=== PATIENT | female | born 1990 | race Hispanic/Latino ===

== ENCOUNTER 2016-07-16 23:24 | Emergency (ER) | payer SELFPAY ==
[2016-07-16 23:25] VITALS: BMI 46.3
[2016-07-16 23:37] VITALS: RESP 18; TEMP 98.6; O2SAT 99
--- NOTE | 2016-07-17 00:09 | ED PDOC ---
HPI: Headache Time Seen by Provider: 07/16/16 23:39 Chief Complaint (Nursing): Headache Chief Complaint (Provider): headache History Per: Patient History/Exam Limitations: no limitations Onset/Duration Of Symptoms: Hrs Current Symptoms Are (Timing): Still Present Quality: Pressure, "Pain" Associated Symptoms: Nausea Additional History Per: Patient Additional Complaint(s): 26 y/o female presents with frontal headache x 10 hours. Patient notes symptoms to have started after eating "salty tuna fish" sandwich. She notes headache to have worsened after taking a nap, at which time she checked her BP at home and it was 180's/110's. Patient states she drank a lot of water and walked around a bit and repeat BP was 160's/100's so she came to ED. Associated nausea. Denies fever, dizziness, extremity numbness/weakness, vision changes, vomiting, chest pain, shortness of breath, palpitations, abdominal pain. Past Medical History Reviewed: Historical Data, Nursing Documentation, Vital Signs Vital Signs: Last Vital Signs Temp 98.6 F 07/16/16 23:33 Pulse 84 07/16/16 23:33 Resp 18 07/16/16 23:33 BP 134/86 07/16/16 23:33 Pulse Ox 99 07/16/16 23:33 - Medical History PMH: Anxiety, Asthma, Back Problems (herniated disk), Depression, Sleep Apnea Denies: HIV, Chronic Kidney Disease - Surgical History Surgical History: Tonsillectomy - Family History Family History: States: Unknown Family Hx - Immunization History Hx Tetanus Toxoid Vaccination: No - Home Medications Home Medications: Ambulatory Orders Medication Instructions Recorded Naproxen 500 mg PO BID PRN #14 tablet 11/23/15 Amoxicillin 875 mg PO BID #14 tab 06/05/16 Naproxen [Naprosyn] 500 mg PO Q12 PRN #20 tablet 07/17/16 - Allergies Allergies/Adverse Reactions: Allergies Allergy/AdvReac Type Severity Reaction Status Date / Time FISH Allergy Severe URTICARIA Verified 07/24/14 21:36 salmon Allergy URTICARIA Uncoded 11/23/15 00:45 Review of Systems ROS Statement: Except As Marked, All Systems Reviewed And Found Negative Neurological: Positive for: Headache Physical Exam - Reviewed Nursing Documentation Reviewed: Yes Vital Signs Reviewed: Yes - Physical Exam Appears: Positive for: Well, Non-toxic, No Acute Distress Head Exam: Positive for: ATRAUMATIC, NORMAL INSPECTION, NORMOCEPHALIC Skin: Positive for: Normal Color Eye Exam: Positive for: Normal appearance, EOMI, PERRL ENT: Positive for: Normal ENT Inspection Cardiovascular/Chest: Positive for: Regular Rate, Rhythm Respiratory: Positive for: Normal Breath Sounds Gastrointestinal/Abdominal: Positive for: Normal Exam Back: Positive for: Normal Inspection Extremity: Positive for: Normal ROM Neurologic/Psych: Positive for: Alert, Oriented - Laboratory Results Result Diagrams: 07/17/16 00:40 07/17/16 00:40 - ECG ECG: Positive for: Viewed By Me (reviewed by ED attending) ECG Rhythm: Positive for: Sinus Rhythm O2 Sat by Pulse Oximetry: 99 - Progress ED Course And Treament: labs, CT head, IV reglan, PO tylenol EXAM: CT Head Without Intravenous Contrast. CLINICAL HISTORY: 26 years old, female; Pain; Headache; Additional info: Headache, HTN TECHNIQUE: Axial computed tomography images of the head/brain without intravenous contrast. This CT exam was performed using one or more of the following dose reduction techniques: automated exposure control, adjustment of the mA and/or kV according to patient size, and/or use of iterative reconstruction technique. Coronal and sagittal reformatted images were created and reviewed. COMPARISON: No relevant prior studies available. FINDINGS: Brain: No intracranial hemorrhage. No mass. No definite edema. Ventricles: No hydrocephalus. Bones/joints: No acute fracture. Soft tissues: Unremarkable. Sinuses: Scattered minimal mucosal thickening of ethmoid sinuses. Tiny LEFT sphenoid retention cyst. Mastoid air cells: No mastoid effusion. Orbits: Unremarkable as visualized. IMPRESSION: 1. No acute intracranial abnormality. 2. Incidental/non-acute findings are described above On re-eval patient resting comfortably; states headache resolved. BP 132/66. Patient educated on findings, discharged with instructions to follow up PMD. Rx Naproxen given. Disposition - Clinical Impression Clinical Impression: Headache - Patient ED Disposition Is Patient to be Admitted: No Counseled Patient/Family Regarding: Studies Performed, Diagnosis, Need For Followup, Rx Given - Disposition Disposition: Routine/Home Disposition Time: 02:09 Condition: IMPROVED Prescriptions: Naproxen [Naprosyn] 500 mg PO Q12 PRN #20 tablet PRN Reason: Pain, Moderate (4-7) Instructions: Acute Headache (ED)
--- NOTE | 2016-07-17 00:39 | CT ---
EXAM: CT Head Without Intravenous Contrast. CLINICAL HISTORY: 26 years old, female; Pain; Headache; Additional info: Headache, HTN TECHNIQUE: Axial computed tomography images of the head/brain without intravenous contrast. This CT exam was performed using one or more of the following dose reduction techniques: automated exposure control, adjustment of the mA and/or kV according to patient size, and/or use of iterative reconstruction technique. Coronal and sagittal reformatted images were created and reviewed. COMPARISON: No relevant prior studies available. FINDINGS: Brain: No intracranial hemorrhage. No mass. No definite edema. Ventricles: No hydrocephalus. Bones/joints: No acute fracture. Soft tissues: Unremarkable. Sinuses: Scattered minimal mucosal thickening of ethmoid sinuses. Tiny LEFT sphenoid retention cyst. Mastoid air cells: No mastoid effusion. Orbits: Unremarkable as visualized. IMPRESSION: 1. No acute intracranial abnormality. 2. Incidental/non-acute findings are described above.
[2016-07-17 00:43] LABS: BASO # 0.1 K/uL (0.0-0.2); BASO % 0.9 % (0.0-2.0); EOS # 0.1 K/uL (0.0-0.7); EOS % 0.9 % (0.0-4.0); HEMATOCRIT 38.2 % (34.0-47.0); LYMPH # 2.7 K/uL (1.0-4.3); LYMPH % 28.3 % (20.0-40.0); MEAN CELL VOLUME 86.8 fl (81.0-99.0); MEAN CORPUSCULAR HEMOGLOBIN 28.7 pg (27.0-31.0); MEAN CORPUSCULAR HGB CONC 33.1 g/dL (33.0-37.0); MEAN PLATELET VOLUME 8.9 fl (7.2-11.7); MONO # 0.7 K/uL (0.0-0.8); MONO % 7.8 % (0.0-10.0); NEUT # 5.9 K/uL (1.8-7.0); NEUT % 62.1 % (50.0-75.0); RED CELL DISTRIBUTION WIDTH 12.9 % (11.5-14.5); WHITE BLOOD COUNT 9.5 K/uL (4.8-10.8)
[2016-07-17 00:50] VITALS: PULSE 75
[2016-07-17 00:52] LABS: ALB/GLOB RATIO 1.3 (1.0-2.1); ALKALINE PHOSPHATASE 93 U/L (38-126); ALT/SGPT 31 U/L (9-52); AST/SGOT 20 U/L (14-36); BILIRUBIN,TOTAL 0.4 mg/dl (0.2-1.3); BLOOD UREA NITROGEN 16 mg/dl (7-17); CALCIUM 8.9 mg/dL (8.4-10.2); CARBON DIOXIDE 26 mmol/L (22-30); CHLORIDE 102 mmol/L (98-107); GFR AFRICAN-AMERICAN > 60; GLUCOSE,RANDOM 92 mg/dL (65-105); POTASSIUM 4.4 MMOL/L (3.6-5.0); SODIUM 142 mmol/l (132-148); TOTAL PROTEIN 7.2 G/DL (6.3-8.2)
[2016-07-17 02:17] VITALS: BP 133/80
--- NOTE | 2016-07-17 07:07 | CARD ---
APPROVED REPORT EKG Measurement Heart [id number] <Conclusion> Normal sinus rhythm Normal ECG
== END 2016-07-17 02:14 | disposition home or self-care (01) ==
LOC: H.ER 23:24
DX: R51 Headache (principal); I10 Essential (primary) hypertension
CPT/HCPCS: 70450; 80053; 81025; 85025; 93005; 99285; J2765

== ENCOUNTER 2017-08-22 15:15 | Emergency (ER) | payer MEDICAID ==
[2017-08-22 15:15] VITALS: BMI 46.3
[2017-08-22 15:29] VITALS: BP 129/83; PULSE 88; RESP 20; TEMP 98.3; O2SAT 98
--- NOTE | 2017-08-22 15:41 | ED PDOC ---
HPI: Dental Pain/Injury Time Seen by Provider: 08/22/17 15:18 Chief Complaint (Nursing): Dental Pain Chief Complaint (Provider): Left lower dental pain, today History Per: Patient History/Exam Limitations: no limitations Onset/Duration Of Symptoms: Days (x1) Current Symptoms Are (Timing): Still Present Additional Complaint(s): 27 year old female presents to the emergency department for dull left lower dental pain and swelling accompanied with a subjective fever onset this morning. For the fever, she took Tylenol. The patient states that she had a route canal done in March, but the dentist left her tooth off. She did not go back due to insurance reasons. PMD: Vincent Serrano Past Medical History Reviewed: Historical Data, Nursing Documentation, Vital Signs Vital Signs: Last Vital Signs Temp 98.3 F 08/22/17 15:26 Pulse 88 08/22/17 15:26 Resp 20 08/22/17 15:26 BP 129/83 08/22/17 15:26 Pulse Ox 98 08/22/17 15:26 - Medical History PMH: Anxiety, Asthma, Back Problems (herniated disk), Depression, Sleep Apnea Denies: HIV, Chronic Kidney Disease - Surgical History Surgical History: Tonsillectomy - Family History Family History: States: Unknown Family Hx - Immunization History Hx Tetanus Toxoid Vaccination: No - Home Medications Home Medications: Ambulatory Orders Medication Instructions Recorded Naproxen 500 mg PO BID PRN #14 tablet 11/23/15 Amoxicillin 875 mg PO BID #14 tab 06/05/16 Naproxen [Naprosyn] 500 mg PO Q12 PRN #20 tablet 07/17/16 Amoxicillin/Clavulanate [Augmentin 1 tab PO BID #20 tab 08/22/17 875 MG-125 MG] Ibuprofen [Motrin Tab] 800 mg PO Q6H PRN #20 tab 08/22/17 - Allergies Allergies/Adverse Reactions: Allergies Allergy/AdvReac Type Severity Reaction Status Date / Time FISH Allergy Severe URTICARIA Verified 08/22/17 15:26 salmon Allergy URTICARIA Uncoded 11/23/15 00:45 Review of Systems ROS Statement: Except As Marked, All Systems Reviewed And Found Negative Constitutional: Positive for: Fever ENT: Positive for: Mouth Pain (left facial), Mouth Swelling (left facial) Physical Exam - Reviewed Nursing Documentation Reviewed: Yes Vital Signs Reviewed: Yes - Physical Exam Appears: Positive for: No Acute Distress Head Exam: Positive for: ATRAUMATIC, NORMAL INSPECTION, NORMOCEPHALIC Skin: Positive for: Normal Color, Warm, DRY Eye Exam: Positive for: Normal appearance ENT: Positive for: Other (lower left molar decay, without drainage or abscess) Neck: Positive for: Normal Respiratory: Positive for: Normal Breath Sounds. Negative for: Accessory Muscle Use, Respiratory Distress Neurologic/Psych: Positive for: Alert, Oriented - ECG O2 Sat by Pulse Oximetry: 98 (RA) Pulse Ox Interpretation: Normal Disposition - Clinical Impression Clinical Impression: Pain, dental, Dental caries - Patient ED Disposition Is Patient to be Admitted: No Counseled Patient/Family Regarding: Diagnosis, Need For Followup, Rx Given - Disposition Disposition: Routine/Home Disposition Time: 15:40 Condition: STABLE Prescriptions: Amoxicillin/Clavulanate [Augmentin 875 MG-125 MG] 1 tab PO BID #20 tab Ibuprofen [Motrin Tab] 800 mg PO Q6H PRN #20 tab PRN Reason: Pain Instructions: Tooth Decay, Adult Forms: [facility] (Bulgarian), [facility] ED School/Work Excuse
== END 2017-08-22 16:26 | disposition home or self-care (01) ==
LOC: H.ER 15:15
DX: K02.9 Dental caries, unspecified (principal); F32.9 Major depressive disorder, single episode, unspecified; F41.9 Anxiety disorder, unspecified; J45.909 Unspecified asthma, uncomplicated

== ENCOUNTER 2017-10-22 14:47 | Emergency (ER) | payer MEDICAID ==
[2017-10-22 14:47] VITALS: BMI 46.3
[2017-10-22 14:55] VITALS: BP 118/79; PULSE 80; RESP 20; TEMP 98.6; O2SAT 98
--- NOTE | 2017-10-22 15:31 | ED PDOC ---
HPI: Back Time Seen by Provider: 10/22/17 14:57 Chief Complaint (Nursing): Upper Extremity Problem/Injury Chief Complaint (Provider): Back Pain History Per: Patient Additional Complaint(s): 27 year old female with a history of chronic back pain presents to the ED for an evaluation of back pain that is worse in the past 2 weeks. Patient states she has a pinching-like sensation to left mid back that does not radiate. The pain has become worse today and she has not taken any medication for pain. She denies any burning sensation when urinating, fall or injury. Patient also has secondary complaint of pain to left wrist after lifting seat cover in her cat 2 days ago. She can bend her wrist but has pain when doing so. Patient is right hand dominant. PMD: Vincent Serrano Past Medical History Reviewed: Historical Data, Nursing Documentation, Vital Signs Vital Signs: Last Vital Signs Temp 98.6 F 10/22/17 14:52 Pulse 80 10/22/17 14:52 Resp 20 10/22/17 14:52 BP 118/79 10/22/17 14:52 Pulse Ox 98 10/22/17 14:52 - Medical History PMH: Anxiety, Asthma, Back Problems, Depression, Sleep Apnea - Surgical History Surgical History: Tonsillectomy Other surgeries: gastric sleeve - Family History Family History: States: No Known Family Hx - Living Arrangements Living Arrangements: With Family - Social History Current smoker - smoking cessation education provided: No Alcohol: None Drugs: Denies - Home Medications Home Medications: Ambulatory Orders Medication Instructions Recorded Naproxen 500 mg PO BID PRN #14 tablet 11/23/15 Amoxicillin 875 mg PO BID #14 tab 06/05/16 Naproxen [Naprosyn] 500 mg PO Q12 PRN #20 tablet 07/17/16 Amoxicillin/Clavulanate [Augmentin 1 tab PO BID #20 tab 08/22/17 875 MG-125 MG] Ibuprofen [Motrin Tab] 800 mg PO Q6H PRN #20 tab 08/22/17 Cyclobenzaprine [Cyclobenzaprine 10 mg PO TID PRN #20 tab 10/22/17 HCl] Diclofenac Epolamine [Flector] 1 patch TP BID PRN #60 patch 10/22/17 - Allergies Allergies/Adverse Reactions: Allergies Allergy/AdvReac Type Severity Reaction Status Date / Time FISH Allergy Severe URTICARIA Verified 10/22/17 14:50 salmon Allergy URTICARIA Uncoded 10/22/17 14:50 Review of Systems ROS Statement: Except As Marked, All Systems Reviewed And Found Negative Constitutional: Negative for: Fever, Chills Cardiovascular: Negative for: Chest Pain, Palpitations Respiratory: Negative for: Cough, Shortness of Breath Gastrointestinal: Positive for: Nausea. Negative for: Vomiting, Abdominal Pain , Diarrhea, Constipation Genitourinary Female: Negative for: Dysuria, Frequency, Incontinence, Hematuria Musculoskeletal: Positive for: Back Pain, Other (left wrist injury) Physical Exam - Reviewed Nursing Documentation Reviewed: Yes Vital Signs Reviewed: Yes - Physical Exam Appears: Positive for: Well, Non-toxic, No Acute Distress Head Exam: Positive for: ATRAUMATIC, NORMAL INSPECTION, NORMOCEPHALIC Skin: Positive for: Normal Color. Negative for: Rash Eye Exam: Positive for: Normal appearance Cardiovascular/Chest: Positive for: Regular Rate, Rhythm Respiratory: Positive for: Normal Breath Sounds. Negative for: Wheezing, Respiratory Distress Gastrointestinal/Abdominal: Positive for: Soft. Negative for: Tenderness, Distended, Guarding, Rebound Back: Positive for: L CVA Tenderness, Vertebral Tenderness (no midline tenderness to thoracic or lumbar spines. ) Extremity: Positive for: Other (Mild tenderness dorsal aspect of left wrist with full range of motion, no snuffbox tenderness, strong left hand coil binder with normal cap refill) Neurologic/Psych: Positive for: Alert, Oriented (x3) - Laboratory Results Urine POC: Negative Urine dip results: Negative for: Leukocyte Esterase, Blood, Nitrate, Ketones, Glucose, Bilirubin, Protein - ECG O2 Sat by Pulse Oximetry: 98 (RA) Pulse Ox Interpretation: Normal - Other Rad LS Spine x-ray X-Ray: Viewed By Me, Read By Radiologist X-Ray Interpretation: see below Left wrist x-ray X-Ray: Interpreted by Me, Viewed By Me X-Ray Interpretation: no fx, no dis Medical Decision Making Medical Decision Making: Time: 1501 Initial Impression: 27 year old female with left-sided back pain Initial Plan: --Urine --Urine Dip --LS Spine AP/LAT [RAD] --Wrist, Left 3 Views [RAD] --Patient given Toradol 30mg LS Spine x-ray - Mild central compression deformity versus Schmorl's node in the superior T12 vertebral endplate, indeterminate age. Otherwise unremarkable. Patient aware of x-ray results. All questions answered. Patient reports improvement pain after Toradol given. Patient was advised to follow-up with primary doctor for further evaluation of ongoing back pain. Prescriptions for Flexeril and Flector patch given. Scribe Attestation: Documented by Jovanny Hawley, acting as a scribe for Valeria Leach PA-C Provider Scribe Attestation: All medical record entries made by the Scribe were at my direction and personally dictated by me. I have reviewed the chart and agree that the record accurately reflects my personal performance of the history, physical exam, medical decision making, and the department course for this patient. I have also personally directed, reviewed, and agree with the discharge instructions and disposition. Disposition - Clinical Impression Clinical Impression: Back pain, Left wrist sprain - Patient ED Disposition Is Patient to be Admitted: No Counseled Patient/Family Regarding: Studies Performed, Diagnosis, Need For Followup, Rx Given - Disposition Referrals: Vincent Serrano MD [Family Provider] - Disposition: Routine/Home Disposition Time: 16:18 Condition: STABLE Additional Instructions: Take rx meds as directed along with tylenol for pain. Avoid any heavy lifting. Follow up with primary care doctor. Prescriptions: Cyclobenzaprine [Cyclobenzaprine HCl] 10 mg PO TID PRN #20 tab PRN Reason: Muscle Spasm Diclofenac Epolamine [Flector] 1 patch TP BID PRN #60 patch PRN Reason: Pain, Moderate (4-7) Instructions: Low Back Pain in Adults, Spinal Stenosis, Wrist Sprain (DC) Forms: [facility] ([place]inyarwanda)
--- NOTE | 2017-10-22 15:59 | RAD ---
PROCEDURE: Left Wrist Radiographs. HISTORY: trauma COMPARISON: None. FINDINGS: BONES: No acute fracture. Mild deformity of the base of the 5th proximal phalanx may be posttraumatic. JOINTS: Normal. No dislocation. SOFT TISSUES: Normal. OTHER FINDINGS: None. IMPRESSION: No acute fracture.
--- NOTE | 2017-10-22 16:01 | RAD ---
PROCEDURE: Radiographs of the Lumbar Spine. HISTORY: pain COMPARISON: No prior. FINDINGS: BONES: Mild central compression deformity versus Schmorl's node in the superior T12 vertebral endplate. Remaining vertebral bodies are maintained in height. DISC SPACES: Unremarkable. OTHER FINDINGS: None. IMPRESSION: Mild central compression deformity versus Schmorl's node in the superior T12 vertebral endplate, indeterminate age. Otherwise unremarkable.
== END 2017-10-22 16:22 | disposition home or self-care (01) ==
LOC: H.ER 14:47
DX: M54.9 Dorsalgia, unspecified (principal); S63.502A Unspecified sprain of left wrist, initial encounter; Y92.89 Other specified places as the place of occurrence of the external cause
CPT/HCPCS: 29125; 72100; 73110; 81025; 96372; 99284; J1885

== ENCOUNTER 2018-04-05 17:29 | Emergency (ER) | payer MEDICAID ==
[2018-04-05 17:29] VITALS: BMI 46.3
[2018-04-05 19:23] VITALS: BP 136/83; PULSE 93; RESP 16; TEMP 98.5; O2SAT 100
--- NOTE | 2018-04-05 21:04 | ED PDOC ---
Upper Extremity Pain/Injury Time Seen by Provider: 04/05/18 19:40 Chief Complaint (Nursing): Finger,Hand,&Wrist Chief Complaint (Provider): Right hand pain, closed in door last night History Per: Patient History/Exam Limitations: no limitations Onset/Duration Of Symptoms: Hrs (20) Additional Complaint(s): 28 yo female with history of asthma presents for evaluation of right hand pain and bruising after slamming her hand in a car door last night at 11pm. Pt states she had worked a double and was to tired to come in last night. Pt took percocet and NSAID for pain. Past Medical History Reviewed: Historical Data, Nursing Documentation, Vital Signs Vital Signs: Last Vital Signs Temp 98.5 F 04/05/18 19:22 Pulse 93 H 04/05/18 19:22 Resp 16 04/05/18 19:22 BP 136/83 04/05/18 19:22 Pulse Ox 100 04/05/18 19:22 - Medical History PMH: Anxiety, Asthma, Back Problems, Depression, Sleep Apnea Denies: HIV, Chronic Kidney Disease - Surgical History Surgical History: Tonsillectomy - Family History Family History: States: Unknown Family Hx - Living Arrangements Living Arrangements: With Family - Social History Current smoker - smoking cessation education provided: No Alcohol: None Drugs: Denies - Immunization History Hx Tetanus Toxoid Vaccination: No - Home Medications Home Medications: Ambulatory Orders Medication Instructions Recorded Naproxen 500 mg PO BID PRN #14 tablet 11/23/15 Amoxicillin 875 mg PO BID #14 tab 06/05/16 Naproxen [Naprosyn] 500 mg PO Q12 PRN #20 tablet 07/17/16 Amoxicillin/Clavulanate [Augmentin 1 tab PO BID #20 tab 08/22/17 875 MG-125 MG] Ibuprofen [Motrin Tab] 800 mg PO Q6H PRN #20 tab 08/22/17 Cyclobenzaprine [Cyclobenzaprine 10 mg PO TID PRN #20 tab 10/22/17 HCl] Diclofenac Epolamine [Flector] 1 patch TP BID PRN #60 patch 10/22/17 Naproxen [Naprosyn] 500 mg PO BID PRN #20 tablet 04/05/18 - Allergies Allergies/Adverse Reactions: Allergies Allergy/AdvReac Type Severity Reaction Status Date / Time FISH Allergy Severe URTICARIA Verified 04/05/18 19:19 salmon Allergy URTICARIA Uncoded 04/05/18 19:19 Review of Systems ROS Statement: Except As Marked, All Systems Reviewed And Found Negative Constitutional: Negative for: Fever, Chills Musculoskeletal: Positive for: Hand Pain Neurological: Negative for: Weakness, Numbness Physical Exam - Reviewed Nursing Documentation Reviewed: Yes Vital Signs Reviewed: Yes - Physical Exam Appears: Positive for: Well, Non-toxic, No Acute Distress Head Exam: Positive for: ATRAUMATIC, NORMAL INSPECTION, NORMOCEPHALIC Skin: Positive for: Normal Color, Warm, DRY Eye Exam: Positive for: Normal appearance ENT: Positive for: Normal ENT Inspection Neck: Positive for: Normal, Painless ROM Cardiovascular/Chest: Negative for: Bradycardia, Tachycardia Respiratory: Negative for: Accessory Muscle Use, Respiratory Distress Back: Positive for: Normal Inspection Extremity: Positive for: Normal ROM, Tenderness (2-3 fingers and metacarpals, wutg ecchymosis ) Neurologic/Psych: Positive for: Alert, Oriented, Gait - ECG O2 Sat by Pulse Oximetry: 100 Medical Decision Making Medical Decision Making: XR without acute fracture or dislocation. Ice, elevation. Disposition - Clinical Impression Clinical Impression: Hand contusion - Patient ED Disposition Is Patient to be Admitted: No Counseled Patient/Family Regarding: Diagnosis, Need For Followup, Rx Given - Disposition Referrals: Varun Auguste MD [Medical Doctor] - Disposition: Routine/Home Disposition Time: 21:06 Condition: GOOD Prescriptions: Naproxen [Naprosyn] 500 mg PO BID PRN #20 tablet PRN Reason: Pain Instructions: Contusion (DC)
--- NOTE | 2018-04-06 10:39 | RAD ---
Date of service: 04/05/2018 PROCEDURE: Radiographs of the right hand HISTORY: Right hand pain, crushed COMPARISON: None. FINDINGS: BONES: Bone alignment and mineralization are normal. There is no acute displaced fracture or bone destruction. JOINTS: The joint spaces are preserved. SOFT TISSUES: Normal. OTHER FINDINGS: None. IMPRESSION: No acute displaced fracture or dislocation.
== END 2018-04-05 21:18 | disposition home or self-care (01) ==
LOC: H.ER 17:29
DX: S60.221A Contusion of right hand, initial encounter (principal); J45.909 Unspecified asthma, uncomplicated

== ENCOUNTER 2018-05-27 20:06 | Emergency (ER) | payer MEDICAID ==
[2018-05-27 20:06] VITALS: BMI 46.3
[2018-05-27 21:46] VITALS: BP 154/91; PULSE 81; RESP 16; TEMP 98.3; O2SAT 99
[2018-05-27] MEDS ORDERED: Sodium Chloride 0.9% 1,000 ML IV STA (22:36)
--- NOTE | 2018-05-27 23:38 | ED PDOC ---
HPI: General Adult Time Seen by Provider: 05/27/18 22:36 Chief Complaint (Nursing): GI Problem Chief Complaint (Provider): GI Problem History Per: Patient History/Exam Limitations: no limitations Onset/Duration Of Symptoms: Days (today) Current Symptoms Are (Timing): Still Present Additional Complaint(s): 28 year old female with a history of gastric bypass surgery presents to the ED with body aches and stabbing abdominal pain associated x3 episodes of vomiting and x2 episodes of self-defecation onset today. Patient had a gastric bypass x1 year ago done by Dr. Holley in [place], during which she flat lined. Otherwise, patient had no complications and did not follow up. She has been on a ketogenic diet for x4 months. No further complaints. PMD: Zach LMNP: 05/19/18 Past Medical History Reviewed: Historical Data, Nursing Documentation, Vital Signs Vital Signs: Last Vital Signs Temp 98.3 F 05/27/18 21:44 Pulse 81 05/27/18 21:44 Resp 16 05/27/18 21:44 BP 154/91 H 05/27/18 21:44 Pulse Ox 99 05/27/18 21:44 - Medical History PMH: Anxiety, Asthma, Back Problems, Depression, Sleep Apnea Denies: HIV, Chronic Kidney Disease - Surgical History Surgical History: Tonsillectomy Other surgeries: gastric bypass - Family History Family History: States: Unknown Family Hx - Immunization History Hx Tetanus Toxoid Vaccination: No - Home Medications Home Medications: Ambulatory Orders Medication Instructions Recorded RX: Naproxen 500 mg PO BID PRN #14 tablet 11/23/15 RX: Amoxicillin 875 mg PO BID #14 tab 06/05/16 RX: Naproxen [Naprosyn] 500 mg PO Q12 PRN #20 tablet 07/17/16 Amoxicillin/Clavulanate [Augmentin 1 tab PO BID #20 tab 08/22/17 875 MG-125 MG] Ibuprofen [Motrin Tab] 800 mg PO Q6H PRN #20 tab 08/22/17 Cyclobenzaprine [Cyclobenzaprine 10 mg PO TID PRN #20 tab 10/22/17 HCl] Diclofenac Epolamine [Flector] 1 patch TP BID PRN #60 patch 10/22/17 RX: Naproxen [Naprosyn] 500 mg PO BID PRN #20 tablet 04/05/18 - Allergies Allergies/Adverse Reactions: Allergies Allergy/AdvReac Type Severity Reaction Status Date / Time FISH Allergy Severe URTICARIA Verified 04/05/18 19:19 salmon Allergy URTICARIA Uncoded 04/05/18 19:19 Review of Systems ROS Statement: Except As Marked, All Systems Reviewed And Found Negative Constitutional: Negative for: Fever Gastrointestinal: Positive for: Vomiting (x2), Abdominal Pain Musculoskeletal: Positive for: Other (body aches) Physical Exam - Reviewed Nursing Documentation Reviewed: Yes - Physical Exam Appears: Positive for: Uncomfortable Head Exam: Positive for: ATRAUMATIC, NORMOCEPHALIC Skin: Positive for: Normal Color, Warm, Dry Eye Exam: Positive for: Normal appearance, EOMI, PERRL ENT: Positive for: Normal ENT Inspection Cardiovascular/Chest: Positive for: Regular Rate, Rhythm. Negative for: Murmur Respiratory: Positive for: Normal Breath Sounds. Negative for: Respiratory Distress Gastrointestinal/Abdominal: Positive for: Tenderness (epigastric tenderness), Other (obese) Extremity: Positive for: Normal ROM (upper and lower). Negative for: Pedal Edema, Deformity Neurologic/Psych: Positive for: Alert, Oriented (x3) - Laboratory Results Result Diagrams: 05/27/18 23:50 05/27/18 23:50 - ECG O2 Sat by Pulse Oximetry: 99 (RA) Pulse Ox Interpretation: Normal Medical Decision Making Medical Decision Making: Time: 2235 Workup for viral illness vs gastroenteritis. Low suspicion for obstruction at this point to other complication or gastric disease. Plan: --labs --Zofran --Influenza --UA Time: 212 --Patient reports worsening abdominal pain, will give morphine, pepcid and CT abdomen. Time: 446 CT abdomen and pelvis IMPRESSION: Left ovarian cyst. No evidence of acute abdominal or pelvic pathology. Time: 504 --CT demonstrates left ovarian cyst, no signs of obstructions or other intraabdominal pathology. Labs within normal limits. Patient with improved symptoms will follow up with PMD in 3-5 days. Scribe Attestation: Documented by Gill Garzon, acting as a scribe for Shanita Mcginnis MD. Provider Scribe Attestation: All medical record entries made by the Scribe were at my direction and personally dictated by me. I have reviewed the chart and agree that the record accurately reflects my personal performance of the history, physical exam, medical decision making, and the department course for this patient. I have also personally directed, reviewed, and agree with the discharge instructions and disposition. Disposition - Clinical Impression Clinical Impression: Gastroenteritis - Disposition Referrals: Fransisco Spencer MD, PhD [Staff Provider] - Disposition: Routine/Home Disposition Time: 05:05 Condition: STABLE Additional Instructions: Increase drinking water while symptoms last to prevent dehydration. 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 Return to the emergency department if symptoms worsen or if new symptoms develop. Instructions: Gastritis (DC), Colitis (DC) Forms: [employer] (Slovak), [facility] ED School/Work Excuse Print Language: ROMANIAN
[2018-05-28 00:02] LABS: BASO % 0.7 % (0.0-2.0); EOS # 0.1 K/uL (0.0-0.7); EOS % 0.8 % (0.0-4.0); HEMOGLOBIN 11.9 g/dL (12.0-16.0); LYMPH # 2.2 K/uL (1.0-4.3); MEAN CELL VOLUME 83.4 fl (81.0-99.0); MEAN CORPUSCULAR HEMOGLOBIN 26.6 pg (27.0-31.0); MEAN CORPUSCULAR HGB CONC 31.9 g/dL (33.0-37.0); MEAN PLATELET VOLUME 8.7 fl (7.2-11.7); MONO # 0.6 K/uL (0.0-0.8); MONO % 9.1 % (0.0-10.0); NEUT # 3.7 K/uL (1.8-7.0); NEUT % 56.4 % (50.0-75.0); RBC 4.48 Mil/uL (3.80-5.20); RED CELL DISTRIBUTION WIDTH 14.5 % (11.5-14.5); WHITE BLOOD COUNT 6.6 K/uL (4.8-10.8)
[2018-05-28 00:11] LABS: ALB/GLOB RATIO 1.3 (1.0-2.1); ALBUMIN 4.3 g/dL (3.5-5.0); ALT/SGPT 48 U/L (9-52); AST/SGOT 28 U/L (14-36); BLOOD UREA NITROGEN 18 mg/dl (7-17); CALCIUM 9.3 mg/dL (8.4-10.2); GFR NON-AFRICAN AMERICAN > 60
[2018-05-28 00:15] LABS: SQUAMOUS EPITHIAL 17 /hpf (0-5); URINE BACTERIA RARE (<OCC); URINE BILIRUBIN NEGATIVE (NEGATIVE); URINE BLOOD MODERATE (NEGATIVE); URINE CLARITY CLOUDY (Clear); URINE COLOR YELLOW (YELLOW); URINE GLUCOSE (UA) NEG (NEGATIVE); URINE LEUKOCYTE ESTERASE NEG Leu/uL (Negative); URINE PROTEIN NEGATIVE (NEGATIVE); URINE UROBILINOGEN 0.2-1.0 mg/dL (0.2-1.0)
[2018-05-28] MEDS ORDERED: Morphine 4 MG/ML VIAL IVP STA (02:12)
[2018-05-28] MEDS ORDERED: Iohexol 240 (50 ml) PO ONE (02:13)
[2018-05-28] MEDS ORDERED: Iohexol 240 (50 ml) ONE (02:18)
[2018-05-28] MEDS ORDERED: Iohexol 300 100 ML IJ ONE (04:00)
[2018-05-28] MEDS ORDERED: Sodium Chloride 0.9% 50 ML IV ONE (04:00)
--- NOTE | 2018-05-28 14:14 | CT ---
Date of service: 05/28/2018 PROCEDURE: CT Abdomen and Pelvis with contrast HISTORY: vomiting, diarrhea, abd pain COMPARISON: None. TECHNIQUE: Following oral and intravenous contrast administration, a CT examination of the abdomen and pelvis was performed from the domes of the diaphragms to the symphysis pubis with reformatted datasets provided not only axial but also sagittal and coronal series.Contrast dose: Omnipaque 300, 100 cc Radiation dose: Total exam DLP = 854.01 mGy-cm. This CT exam was performed using one or more of the following dose reduction techniques: Automated exposure control, adjustment of the mA and/or kV according to patient size, and/or use of iterative reconstruction technique. FINDINGS: LOWER THORAX: Unremarkable. LIVER: Unremarkable. No gross lesion or ductal dilatation. GALLBLADDER AND BILE DUCTS: Unremarkable. PANCREAS: Unremarkable. No gross lesion or ductal dilatation. SPLEEN: Unremarkable. ADRENALS: Unremarkable. No mass. KIDNEYS AND URETERS: Unremarkable. No hydronephrosis. No solid mass. VASCULATURE: Unremarkable. No aortic aneurysm. No aortic atherosclerotic calcification or mural plaque present. BOWEL: Unremarkable. No obstruction. No gross mural thickening. APPENDIX: Normal appendix. PERITONEUM: Unremarkable. No free fluid. No free air. LYMPH NODES: Unremarkable. No enlarged lymph nodes. BLADDER: Unremarkable. REPRODUCTIVE: 2.4 cm cyst left ovary, 8 Hounsfield units. BONES: Mild compression fracture T12, age indeterminate. OTHER FINDINGS: None. IMPRESSION: No definite acute abdominal. 2.4 cm cyst seen the left ovary, 8 Hounsfield units density. Further characterization by transvaginal pelvic ultrasound can be performed if clinically warranted. Mild incidental T12 mild compression fracture, indeterminate age. Preliminary report provided by [employer], 05/28/2018 4:47 a.m..
== END 2018-05-28 05:15 | disposition home or self-care (01) ==
LOC: H.ER 20:06
DX: K52.9 Noninfective gastroenteritis and colitis, unspecified (principal); J45.909 Unspecified asthma, uncomplicated; Z86.59 Personal history of other mental and behavioral disorders; Z98.84 Bariatric surgery status
CPT/HCPCS: 74177; 80053; 81003; 81025; 85025; 87804; 96374; 96375; 96376; 99284; J2270; J2405; J7030; Q9966; Q9967

== ENCOUNTER 2018-06-09 12:58 | Emergency (ER) | payer MEDICAID ==
[2018-06-09 12:58] VITALS: BMI 46.3
[2018-06-09 13:04] VITALS: BP 128/81; PULSE 65; RESP 20; TEMP 98.4; O2SAT 100
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
== END 2018-06-09 13:39 | disposition home or self-care (01) ==
LOC: H.ER 12:58
DX: M54.30 Sciatica, unspecified side (principal); Z86.59 Personal history of other mental and behavioral disorders; J45.909 Unspecified asthma, uncomplicated

== ENCOUNTER 2018-07-03 16:19 | Emergency (ER) | payer MEDICAID ==
[2018-07-03 16:20] VITALS: BMI 46.3
[2018-07-03 16:27] VITALS: RESP 18; O2SAT 99
[2018-07-03] MEDS ORDERED: Sodium Chloride 0.9% 1,000 ML IV STA (16:49)
--- NOTE | 2018-07-03 17:00 | ED PDOC ---
HPI: Abdomen Time Seen by Provider: 07/03/18 16:29 Chief Complaint (Nursing): Abdominal Pain Chief Complaint (Provider): Abdominal Pain History Per: Patient History/Exam Limitations: no limitations Onset/Duration Of Symptoms: Days (x2) Current Symptoms Are (Timing): Constant Quality Of Discomfort: "Pain" Associated Symptoms: Fever, Nausea, Vomiting, Urinary Symptoms (dysuria). denies: Chills, Diarrhea, Constipation Additional Complaint(s): 28 year old female with no significant past medical history presents to the ED with constant abdominal pain onset x2 days associated nausea, vomiting, and fever. Patient reports Tmax of 100 and dysuria, but denies any diarrhea, constipation or hematuria. She took Pepto-Bismol at home for symptoms. PMD: Zach Past Medical History Reviewed: Historical Data, Nursing Documentation, Vital Signs Vital Signs: Last Vital Signs Temp 97.5 F L 07/03/18 16:25 Pulse 108 H 07/03/18 16:25 Resp 18 07/03/18 16:25 BP 119/87 07/03/18 16:25 Pulse Ox 99 07/03/18 16:25 - Medical History PMH: Anxiety, Asthma, Back Problems, Depression, Sleep Apnea Denies: HIV, Chronic Kidney Disease - Surgical History Surgical History: Tonsillectomy Other surgeries: gastric sleeve - Family History Family History: States: Unknown Family Hx - Social History Current smoker - smoking cessation education provided: No Ex-Smoker (has not smoked in the last 12 months): No Alcohol: None Drugs: Denies - Immunization History Hx Tetanus Toxoid Vaccination: No - Home Medications Home Medications: Ambulatory Orders Medication Instructions Recorded Naproxen 500 mg PO BID PRN #14 tablet 11/23/15 Amoxicillin 875 mg PO BID #14 tab 06/05/16 Naproxen [Naprosyn] 500 mg PO Q12 PRN #20 tablet 07/17/16 Amoxicillin/Clavulanate [Augmentin 1 tab PO BID #20 tab 08/22/17 875 MG-125 MG] Ibuprofen [Motrin Tab] 800 mg PO Q6H PRN #20 tab 08/22/17 Cyclobenzaprine [Cyclobenzaprine 10 mg PO TID PRN #20 tab 10/22/17 HCl] Diclofenac Epolamine [Flector] 1 patch TP BID PRN #60 patch 10/22/17 Naproxen [Naprosyn] 500 mg PO BID PRN #20 tablet 04/05/18 Methylprednisolone [Medrol Dose 4 mg PO DAILY #21 mg 06/09/18 Pack (21 tabs)] Famotidine [Pepcid] 20 mg PO BID #20 tab 07/03/18 Ondansetron ODT [Zofran ODT] 4 mg PO Q8H PRN #20 odt 07/03/18 - Allergies Allergies/Adverse Reactions: Allergies Allergy/AdvReac Type Severity Reaction Status Date / Time FISH Allergy Severe URTICARIA Verified 07/03/18 16:25 salmon Allergy URTICARIA Uncoded 07/03/18 16:25 Review of Systems ROS Statement: Except As Marked, All Systems Reviewed And Found Negative Constitutional: Positive for: Fever Gastrointestinal: Positive for: Nausea, Vomiting, Abdominal Pain. Negative for: Diarrhea, Constipation Genitourinary Female: Positive for: Dysuria. Negative for: Hematuria Physical Exam - Reviewed Nursing Documentation Reviewed: Yes Vital Signs Reviewed: Yes - Physical Exam Appears: Positive for: Non-toxic, No Acute Distress Head Exam: Positive for: ATRAUMATIC, NORMOCEPHALIC Skin: Positive for: Normal Color, Warm, Dry Eye Exam: Positive for: Normal appearance, EOMI, PERRL Cardiovascular/Chest: Positive for: Regular Rate, Rhythm. Negative for: Murmur Respiratory: Positive for: Normal Breath Sounds. Negative for: Respiratory Distress Gastrointestinal/Abdominal: Positive for: Soft, Tenderness (moderate epigastric tenderness). Negative for: Guarding, Rebound Extremity: Positive for: Normal ROM (upper and lower). Negative for: Pedal Edema, Deformity Neurological/Psych: Positive for: Awake, Alert, Oriented - Laboratory Results Result Diagrams: 07/03/18 17:37 07/03/18 17:37 - ECG O2 Sat by Pulse Oximetry: 99 (RA) Pulse Ox Interpretation: Normal Medical Decision Making Medical Decision Making: Time: 1648 Plan: --CMP --Lipase --U preg --U dip --CBC --PTT --PT/INR --NS --Zofran 4 mg IV --UA --US abdomen Name: FABRICIO AMARO Exam Date: Jul 03, 2018 5:56:41 PM EDT Modality Type: SD\\US\\OT\\AK Description: US - AB LIMITED (SINGLE ORGAN, QUAD RANT) Gender: F Laterality: Not applicable : 89 Referring Physician: Lacy So EXAM: US Abdomen, Right Upper Quadrant. CLINICAL HISTORY: Epigastric pain, vomiting; fever with abd pain TECHNIQUE: Right upper quadrant sonography performed with image documentation. COMPARISON: None provided. FINDINGS: LIVER: Within normal limits in size and echogenicity. No mass. GALLBLADDER: The gallbladder appears within normal limits. No gallbladder wall thickening or pericholecystic fluid. COMMON BILE DUCT: No dilation. PANCREAS: The visualized pancreas appears within normal limits. The distal pancreas is obscured by bowel gas. RIGHT KIDNEY: Unremarkable. Normal renal contours. No renal mass or calculus. No hydronephrosis. IMPRESSION: Unremarkable right upper quadrant ultrasound. Electronically signed on Jul 03, 2018 6:38:44 PM EDT by: Johny Dailey M.D., Certified by [facility], Diagnostic Radiology 19:00 Pt ambulated to restroom without difficulty. Old records reviewed, patient had CT abd/pelvis last month for similar pain, negative for acute changes. --------- -------- Scribe Attestation: Documented by Gill Garzon, acting as a scribe for Lacy So MD. Provider Scribe Attestation: All medical record entries made by the Scribe were at my direction and personally dictated by me. I have reviewed the chart and agree that the record accurately reflects my personal performance of the history, physical exam, medical decision making, and the department course for this patient. I have also personally directed, reviewed, and agree with the discharge instructions and disposition. Disposition - Clinical Impression Clinical Impression: Abdominal pain in female - Patient ED Disposition Is Patient to be Admitted: No - Disposition Referrals: Vincent Serrano MD [Family Provider] - Disposition: Routine/Home Disposition Time: 19:02 Condition: IMPROVED Prescriptions: Famotidine [Pepcid] 20 mg PO BID #20 tab Ondansetron ODT [Zofran ODT] 4 mg PO Q8H PRN #20 odt PRN Reason: Nausea/Vomiting Instructions: Acute Abdomen (Belly Pain) Forms: [employer] ([place]), [facility] ED School/Work Excuse
[2018-07-03 17:45] LABS: BASO % 0.1 % (0.0-2.0); EOS % 0.2 % (0.0-4.0); HEMOGLOBIN 12.9 g/dL (12.0-16.0); INR 1.2; LYMPH # 0.4 K/uL (1.0-4.3); LYMPH % 7.1 % (20.0-40.0); MEAN CELL VOLUME 83.6 fl (81.0-99.0); MEAN CORPUSCULAR HEMOGLOBIN 26.9 pg (27.0-31.0); MEAN CORPUSCULAR HGB CONC 32.2 g/dL (33.0-37.0); MEAN PLATELET VOLUME 8.9 fl (7.2-11.7); MONO # 0.3 K/uL (0.0-0.8); MONO % 5.9 % (0.0-10.0); NEUT # 4.7 K/uL (1.8-7.0); NEUT % 86.7 % (50.0-75.0); PLATELET COUNT 208 K/uL (130-400); PROTHROMBIN TIME 13.5 Seconds (9.8-13.1); RBC 4.77 Mil/uL (3.80-5.20); RED CELL DISTRIBUTION WIDTH 14.7 % (11.5-14.5); WHITE BLOOD COUNT 5.4 K/uL (4.8-10.8)
[2018-07-03 17:47] LABS: SQUAMOUS EPITHIAL 1 /hpf (0-5); URINE BILIRUBIN NEGATIVE (NEGATIVE); URINE BLOOD NEGATIVE (NEGATIVE); URINE CLARITY SLIGHTY-CLOUDY (Clear); URINE COLOR YELLOW (YELLOW); URINE GLUCOSE (UA) NEG (NEGATIVE); URINE LEUKOCYTE ESTERASE NEG Leu/uL (Negative); URINE PROTEIN NEGATIVE (NEGATIVE)
[2018-07-03 17:48] LABS: PARTIAL THROMBOPLASTIN TIME 32.2 Seconds (25.6-37.1)
[2018-07-03 17:50] LABS: ALB/GLOB RATIO 1.3 (1.0-2.1); ALT/SGPT 31 U/L (9-52); AST/SGOT 17 U/L (14-36); BLOOD UREA NITROGEN 13 mg/dl (7-17); CALCIUM 8.8 mg/dL (8.4-10.2); GFR NON-AFRICAN AMERICAN > 60; LIPASE 24 U/L (23-300)
[2018-07-03 18:16] LABS: BANDS 2 % (0-2); LYMPHOCYTE 9 % (20-50); MONOCYTE 6 % (0-10); NEUTROPHIL 83 % (42-75); PLATELET ESTIMATE NORMAL (NORMAL); TOTAL CELLS COUNTED 100
[2018-07-03 18:17] LABS: ANISOCYTOSIS SLIGHT; HYPOCHROMIC SLIGHT; MICROCYTOSIS SLIGHT
[2018-07-03 20:01] VITALS: BP 124/60; PULSE 94; TEMP 99
--- NOTE | 2018-07-04 08:24 | US ---
Date of service: 07/03/2018 HISTORY: Epigastric pain COMPARISON: CT scan 05/28/2018 TECHNIQUE: Real-time transabdominal ultrasound evaluation of the right upper quadrant of the abdomen was performed. FINDINGS: LIVER: Measures 15.4 cm in length. Normal echogenicity of the liver parenchyma. No mass. No intrahepatic bile duct dilatation. GALLBLADDER: Gallbladder is mildly contracted. No definite gallbladder wall thickening, pericholecystic fluid, or gallstones are seen. No sonographic Cabrera's sign was elicited. COMMON BILE DUCT: Measures 3 mm. No stones. No dilatation. PANCREAS: Not adequately identified due to overlying bowel gas. RIGHT KIDNEY: Measures 9.5 cm in length. Normal echogenicity. No calculus, mass, or hydronephrosis. AORTA: No aneurysmal dilatation. IVC: Unremarkable. OTHER FINDINGS: None . IMPRESSION: Limited evaluation of the pancreas. Otherwise unremarkable right upper quadrant ultrasound. This agrees with preliminary report.
== END 2018-07-03 19:54 | disposition home or self-care (01) ==
LOC: H.ER 16:19
DX: R10.2 Pelvic and perineal pain (principal); Z86.59 Personal history of other mental and behavioral disorders; J45.909 Unspecified asthma, uncomplicated; Z87.891 Personal history of nicotine dependence
CPT/HCPCS: 76705; 80053; 81003; 81025; 83690; 85025; 85610; 85730; 96360; 99284; J2405; J7030